=== PATIENT | female | born 2000 | race Caucasian/White ===

== ENCOUNTER 2021-12-11 13:04 | Emergency (ER) | payer OTHER, SELFPAY ==
[2021-12-11] VITALS (13 sets, daily range): BP systolic 95–145; BP diastolic 50–96; PULSE 86–107; RESP 16–30; TEMP 36.9; O2SAT 100
--- NOTE | ~2021-12-11 | XR_ITS ---
EXAMINATION: XR chest 2V 12/11/2021 14:13 INDICATION: Chest pain. Epigastric pain. PROCEDURE: Two-view chest COMPARISON: No prior studies for comparison. FINDINGS: The lungs are clear. The cardiomediastinal silhouette is within normal limits. There are no pleural effusions. There is no pneumothorax suspected. IMPRESSION: 1: NO ACUTE CARDIOPULMONARY DISEASE. Reviewed, dictated and finalized at location A.
--- NOTE | ~2021-12-11 | CT_ITS ---
EXAMINATION: CT diagnostic chest w con DATE: 12/11/2021 17:24 INDICATION: Shortness of breath. Elevated white blood cell count. TECHNIQUE: Computed tomography (CT) of the chest was performed with 75 cc Omnipaque 350 intravenous c ontrast. The dose-length product was 466.08 mGy-cm. Automated exposure control and iterative reconstr uction technique were employed. COMPARISON: Chest dated 12/11/2021 FINDINGS: No significant pleural or pericardial effusion. Heart size normal. No thoracic lymphadenopa thy. Upper abdomen is unremarkable. Fatty infiltration of the liver. No focal airspace consolidation. No pneumothorax. No pulmonary nodules/masses. No endobronchial lesions. No acute osseous abnormality . No significant vascular abnormality. No large central pulmonary embolism. IMPRESSION: 1. No acute cardiopulmonary disease. Reviewed, dictated and finalized at location A.
--- NOTE | 2021-12-11 13:05 | ECG_ITS ---
Measurements Intervals [place] Rate: 106 P: 16 PA: 126 QRS: 70 QRSD: 90 T: 29 QT: 327 QTc: 434 Interpretive Statements SINUS TACHYCARDIA OTHERWISE NORMAL ECG NO PREVIOUS ECG AVAILABLE FOR COMPARISON Electronically Signed On 12-11-2021 13:58:30 CDT by Naif Lyles M.D.
[2021-12-11 13:50] LABS: Basophils Absolute Auto 0.1 K/mm3 (0.0-0.1); Basophils Percent Auto 0.3 % (0.2-1.2); Eosinophils Percent Auto 0.3 % (0-4.4); Hematocrit 39.1 % (37.0-47.0); Hemoglobin 12.2 g/dL (12.0-15.0); Immature Granulocyte Absolute 0.06 K/mm3 (0.00-0.031); Immature Granulocyte Percent A 0.4 % (0-0.5); Lymphocytes Absolute Auto 1.09 K/mm3 (0.9-3.2); Lymphocytes Percent Auto 6.8 % (18.3-44.2); Mean Corpuscular HGB Conc 31.2 g/dl (32-36); Mean Corpuscular Hemoglobin 25.3 pg (26-34); Mean Platelet Volume 9.4 fl (7.4-10.4); Monocytes Absolute Auto 0.6 K/mm3 (0.1-0.6); Monocytes Percent Auto 3.7 % (2.6-8.5); Neutrophils Absolute Auto 14.2 K/mm3 (1.3-6.7); Neutrophils Percent Auto 88.5 % (45.5-73.1); Platelet Count Result 353 k/mm3 (150-375); Red Blood Count 4.83 M/mm3 (4.2-5.4); Red Cell Distribution Width 14.7 % (11.5-14.5)
[2021-12-11 14:01] LABS: Alanine Aminotransferase 20 U/L (6-35); Albumin Level 4.8 g/dL (3.5-5.1); Alkaline Phosphatase 108 U/L (38-126); Anion Gap 9 mmol/L (8-16); Aspartate Amino Transferase 21 U/L (14-36); Bilirubin,Total 0.5 mg/dL (0.2-1.3); Blood Urea Nitrogen 9 mg/dL (7-17); Calcium 8.7 mg/dL (8.4-10.2); Carbon Dioxide 26 mmol/L (22-30); Chloride 101 mmol/L (98-107); Estimated CRCL calculation 126 ml/min; Estimated Glomerular Filt Rate > 60; Glucose 112 mg/dL (65-110); Lipase 78 U/L (23-300); Potassium 3.7 mmol/L (3.4-5.0); Sodium 136 mmol/L (137-145)
[2021-12-11 14:10] LABS: INR 1.1; Partial Thromboplastin Time 27.5 SECONDS (22.3-36.8); Prothrombin Time 13.7 Seconds (11.1-14.7)
[2021-12-11 14:12] LABS: Troponin I < 0.012 ng/mL (0.000-0.034)
--- NOTE | 2021-12-11 14:38 | ED.CHESTPAIN ---
HPI - Chest Pain General Chief Complaint: Chest Pain Stated Complaint: chest tightness Time Seen by Provider: 12/11/21 14:00 Source: patient and RN notes reviewed Mode of arrival: ambulatory Limitations: no limitations History of Present Illness HPI narrative: This is a 21 year old female who presents for evaluation of chest pain. She reports having shortness of breath for months with exertion. Last night she noticed midsternal chest pain that she describes as sharp. This pain is worse with inspiration and sitting up. She also states she had lightheadedness today so she was sent to ER from work. She has not taken any medication for her pain. She reports pain 5/10. She denies preceding symptoms such as cough, congestion, sore throat, fever, chills. She denies leg swelling or calf pain. Related Data Allergies Allergy/AdvReac Type Severity Reaction Status Date / Time Penicillins Allergy Unknown RASH Verified 12/11/21 14:05 CEFTRIAXONE SODIUM Allergy Intermediate RASH Uncoded 09/19/14 15:07 CEPHALEXIN MONOHYDRATE Allergy Intermediate Rash Uncoded 12/11/21 14:05 Review of Systems Review of Systems: All systems reviewed & are unremarkable except as noted in HPI and below Constitutional: Constitutional: Denies chills, Denies fatigue and Denies fever(s) ENT: Denies epistaxis, Denies nasal congestion and Denies sore throat Cardiovascular: Cardiovascular: Reports chest pain, Denies rapid heart rate, Denies radiating jaw, neck or arm pain and Denies slow heart rate Respiratory: Respiratory: Denies chest congestion, Denies cough and Reports dyspnea Gastrointestinal: Gastrointestinal: Denies abdominal pain, Denies bloating, Denies nausea and Denies vomiting PMFSH Past Medical History Medical History (Updated 12/11/21 @ 17:56 by Sunita Smith MD) Ganglion cyst History of PCOS Social History Social History (Updated 12/11/21 @ 14:38 by Sunita Smith MD) Tobacco type: e-cigarettes/vaping Substance use: never Exam Const: General: healthy appearing Nutritional Appearance: well nourished Orientation/consciousness: patient oriented x3 Limitations: no limitations HENMT: Head: normal to inspection Eyes: EOM: EOMs intact bilaterally Chest: Chest palpation & inspection: tenderness sternum Resp: Effort & Inspection: normal respiratory effort Auscultation: clear to auscultation bilaterally Cardio: Rate: tachycardic Rhythm: regular rhythm Heart sounds: no murmurs GI: GI Palp: Yes Soft to palpation, No Tenderness to palpation present (GI), No Guarding due to palpation present (GI) and No Rigid due to palpation Auscultation: normal bowel sounds Skin: General skin exam: normal color Rashes: no rashes Wounds: no wounds Neuro: General: patient oriented x3, moves all extremities and CN's II-XI intact bilaterally Cranial nerves: Yes Nystagmus not present Speech: normal speech Extrem: General: normal to inspection Psych: Mental Status: mental status grossly normal Affect: normal affect Attitude: cooperative Course Reevaluation(s) Reevaluation #1: Patient is resting comfortable in bed and in no acute distress. I Discussed labs show leukocytosis but no infectious source found. CT is negative d dimer is negative. Date: 12/11/21 Time: 17:54 Vital Signs Vital signs: Vital Signs Temperature 98.5 F 12/11/21 13:34 Pulse Rate 105 H 12/11/21 13:34 Respiratory Rate 18 12/11/21 13:34 Blood Pressure 145/86 H 12/11/21 13:34 Pulse Oximetry 100 12/11/21 13:34 Temperature 98.5 F 12/11/21 13:34 Pulse Rate 98 12/11/21 18:15 Respiratory Rate 16 12/11/21 18:15 Blood Pressure 130/87 12/11/21 18:15 Pulse Oximetry 100 12/11/21 18:15 Oxygen Delivery Room Air 12/11/21 14:00 MDM - Chest Pain Lab Data Attestation: I reviewed the patient's lab results. Result diagrams: 12/11/21 13:44 12/11/21 13:44 Labs: Lab Results 12/11/21 12/11/21
[2021-12-11] MEDS: SODIUM CHLORIDE 0.9% IV 1,000 ML 999 ML IV CONT (15:11)
[2021-12-11] MEDS: KETOROLAC 15 MG/ML VIAL (*BKC) IV PUSH (15:11)
[2021-12-11 16:26] LABS: D Dimer 0.29 ug/mL (<0.48)
[2021-12-11 17:15] LABS: Troponin I < 0.012 ng/mL (0.000-0.034)
== END 2021-12-11 18:15 | disposition home or self-care (01) ==
PROVIDERS: Emergency Medicine; Emergency Provider General Practice; PCP Physician Assistant
DX: R07.89 Other chest pain (principal); D72.829 Elevated white blood cell count, unspecified; E28.2 Polycystic ovarian syndrome; R00.0 Tachycardia, unspecified
CPT/HCPCS: 36415; 71046; 71260; 80053; 81025; 83690; 84484; 85025; 85380; 85610; 85730; 93005; 96361; 96374; 99284; J1885; J7030; Q9967